=== PATIENT | female | born 1985 | race African-American/Black ===

== ENCOUNTER → 2019-02-27 | Outpatient (REF) | payer OTHER | LOC: M LAB REF 13:43 | PROVIDERS: ATTEND Otolaryngology | DX: E04.1 Nontoxic single thyroid nodule (principal) ==

== ENCOUNTER 2021-01-27 17:45 | Emergency (ER) | payer OTHER ==
[~2021-01-27] VITALS: Ht 167.6 cm; Wt 73.3 kg
[2021-01-27] MEDS ORDERED: ONDANSETRON 4MG/2ML VIAL IV ONE (21:40)
[2021-01-27] MEDS ORDERED: ONDANSETRON 4 MG ORAL DISINTEGRATING TAB PO ONE (21:40)
[2021-01-27] MEDS ORDERED: KETOROLAC TROMETHAMINE 10 MG TAB PO ONE (21:40)
[2021-01-27] MEDS ORDERED: ONDA4TAB6 PO (21:42)
[2021-01-27 22:02] VITALS: BP 130/69
== END 2021-01-27 22:04 | disposition home or self-care (01) ==
LOC: M ED 17:45
DX: S06.0X0A Concussion without loss of consciousness, initial encounter (principal); X58.XXXA Exposure to other specified factors, initial encounter; Y92.89 Other specified places as the place of occurrence of the external cause
CPT/HCPCS: 99283; Q0162